=== PATIENT | female | born 1985 | race African-American/Black ===

== ENCOUNTER 2020-08-17 18:41 | Emergency (ER) | payer OTHER ==
[~2020-08-17] VITALS: Ht 162.6 cm; Wt 122.5 kg
[~2020-08-17 18:41] MED LIST: AMARYL2 M1 PO; FLAGYL500 MG PO; HYDROCHLOROTH12.5 M2 PO; METFORMIN HCL500 MG PO; PHENTERMINE H37.5 MG PO; ZOFRAN ODT4 MG PO
[2020-08-17] MEDS ORDERED: VICTOZA0.6 MG/0.1 SUBQ (18:54)
[2020-08-17] MEDS ORDERED: HYDROCHLOROTHIA25 M1 PO (18:55)
[2020-08-17] MEDS ORDERED: METFORMIN HCL500 M3 PO (18:55)
[2020-08-17] MEDS ORDERED: NORVASC5 MG PO (18:55)
[2020-08-17 19:21] LABS: URINE BLOOD NEGATIVE (Negative); URINE CLARITY CLEAR; URINE COLOR YELLOW; URINE GLUCOSE-RANDOM NEGATIVE (Negative); URINE KETONES 1+ (Negative); URINE LEUKOCYTES-REFLEX TRACE (Negative); URINE NITRITE-REFLEX NEGATIVE (Negative); URINE PROTEIN TRACE (Negative); URINE SPECIFIC GRAVITY 1.025 (1.005-1.030)
[2020-08-17 19:22] LABS: URINE BILIRUBIN 1+ (Negative)
[2020-08-17 19:26] LABS: ICTOTEST (BILI CONFIRMATORY) Negative (Negative)
[2020-08-17 19:28] LABS: BACTERIA-REFLEX 1-9 Few /HPF (None Seen); SQUAMOUS 0-3 Few /LPF (0-3); URINE RBC 0-2 Rare /HPF (0-2); URINE WBC-REFLEX 0-5 Rare /HPF (0-5)
[2020-08-17 19:29] LABS: CASTS None Seen /LPF (None Seen); CRYSTALS None Seen /LPF (None Seen); MUCUS 4-6 Moderate strn/LPF (None Seen)
[2020-08-17] MEDS ORDERED: FLAGYL500 M1 PO (19:54)
[2020-08-17 20:21] VITALS: BP 144/90
== END 2020-08-17 20:22 | disposition home or self-care (01) ==
LOC: M.ERS 18:41
PROVIDERS: Physician Assistant
DX: N76.0 Acute vaginitis (principal); B96.89 Other specified bacterial agents as the cause of diseases classified elsewhere; E11.9 Type 2 diabetes mellitus without complications; G43.909 Migraine, unspecified, not intractable, without status migrainosus; J45.909 Unspecified asthma, uncomplicated; F17.210 Nicotine dependence, cigarettes, uncomplicated; Z91.040 Latex allergy status

== ENCOUNTER 2020-08-28 21:19 | Emergency (ER) | payer OTHER ==
[~2020-08-28] VITALS: Ht 162.6 cm; Wt 126.5 kg
[~2020-08-28 21:19] MED LIST changes: +FLAGYL500 M1 PO; +HYDROCHLOROTHIA25 M1 PO; +METFORMIN HCL500 M3 PO; +NORVASC5 MG PO; +VICTOZA0.6 MG/0.1 SUBQ
[2020-08-28 21:41] LABS: URINE BILIRUBIN NEGATIVE (Negative); URINE BLOOD NEGATIVE (Negative); URINE CLARITY CLEAR; URINE COLOR DARK YELLOW; URINE GLUCOSE-RANDOM NEGATIVE (Negative); URINE KETONES NEGATIVE (Negative); URINE LEUKOCYTES-REFLEX NEGATIVE (Negative); URINE NITRITE-REFLEX NEGATIVE (Negative); URINE PROTEIN NEGATIVE (Negative); URINE UROBILINOGEN 0.2 E.U./dl (0.2-1.0)
[2020-08-28 21:47] LABS: ABSOLUTE BASOPHILS 0.1 thou/uL (0.0-0.2); ABSOLUTE EOSINOPHILS 0.2 thou/uL (0.0-0.7); ABSOLUTE LYMPHOCYTES 4.1 thou/uL (0.8-5.3); ABSOLUTE MONOCYTES 1.1 thou/uL (0.0-1.2); ABSOLUTE NEUTROPHILS 7.6 thou/uL (1.6-8.1); BASOPHILS 1.1 %; EOSINOPHILS 1.5 %; HEMATOCRIT 41.6 % (37.0-47.0); HEMOGLOBIN 14.3 gm/dL (12.0-15.0); LYMPHOCYTES 31.3 %; MCH 28.3 pg (26.0-34.0); MCHC 34.5 g/dL (28.0-37.0); MCV 82.2 fL (80.0-100.0); MONOCYTES 8.2 %; MPV 8.1 fl. (7.2-11.1); NUCLEATED RBCS 0 /100WBC; PLATELET COUNT* 310 thou/uL (150-400); POLYS 57.9 %; RBC 5.06 mil/uL (4.20-5.00); RDW-CV 13.7 % (10.5-14.5); WBC 13.1 thou/uL (4.0-11.0)
[2020-08-28 21:49] LABS: AMP/METHAMP Negative (Negative); BARBITURATES Negative (Negative); BENZODIAZEPINES Negative (Negative); COCAINE Negative (Negative); METHADONE Negative (Negative); OPIATES Negative (Negative); PCP Negative (Negative); THC POSITIVE (Negative)
[2020-08-28 21:57] LABS: CALCIUM 9.2 mg/dL (8.5-10.1); CREATININE 0.7 mg/dL (0.6-1.3); POTASSIUM 3.9 mmol/L (3.5-5.1)
[2020-08-28 22:03] LABS: ALBUMIN 3.7 g/dL (3.4-5.0); TOTAL BILIRUBIN 0.4 mg/dL (<0.1-1.0); TOTAL PROTEIN 8.3 g/dL (6.4-8.2)
[2020-08-28 22:17] LABS: ACETAMINOPHEN < 2 ug/mL (10-30); ALCOHOL < 10 mg/dL (<10); SALICYLATE 3.4 mg/dL (2.8-20.0)
[2020-08-29 02:00] VITALS: BP 143/72
== END 2020-08-29 02:00 ==
LOC: M.ERS 21:19
PROVIDERS: Emergency Medicine
DX: F29 Unspecified psychosis not due to a substance or known physiological condition (principal); Z20.822 Contact with and (suspected) exposure to COVID-19; G43.909 Migraine, unspecified, not intractable, without status migrainosus; J45.909 Unspecified asthma, uncomplicated; Z91.040 Latex allergy status